=== PATIENT | male | born 1960 | race Caucasian/White ===

== ENCOUNTER 2016-07-07 21:49 | Emergency (ER) | payer BC ==
--- NOTE | 2016-07-08 07:05 | ER ---
ADMIT: 07/07/2016 RM/LOC: ER [facility] MR#: [id number] [address] [place] [address] Emergency Room Report SEX: M AGE: 56 : 1960 DATE: 07/07/2016 The patient is a 56-year-old male, broke up a fight amongst 3 dogs, sustained multiple left leg lacerations. Exam remarkable for nontoxic, afebrile male with multiple dog bites to left lateral leg, totaling 20 cm. No foreign bodies noted. Wounds cleansed, anesthetized, thoroughly irrigated and scrubbed, closed with 4-0 Prolene interrupted x22, bacitracin, and dressing. Augmentin 875 mg in department b.i.d. x10 days. Follow up with Juliet for wound check in 48 hours. The patient was offered rabies vaccine, but declined. Animal Control was consulted since he does not know who the dogs belong to. Animal Control will do their best, but also recommended rabies vaccine. Wale Tellez MD/ royer JOB #: [id number] CC: Wale Tellez MD, Attending Physician PANCHO Morel, Family Physician PANCHO Morel
== END 2016-07-07 23:20 | disposition home or self-care (01) ==
LOC: ER 21:49
PROC: 0HQLXZZ Repair Left Lower Leg Skin, External Approach (ICD-10-PCS; principal; 2016-07-07)
DX: S81.812A Laceration without foreign body, left lower leg, initial encounter (principal); I10 Essential (primary) hypertension; W54.0XXA Bitten by dog, initial encounter; Y92.009 Unspecified place in unspecified non-institutional (private) residence as the place of occurrence of the external cause